=== PATIENT | male | born 2000 | race Hispanic/Latino ===

== ENCOUNTER 2019-09-28 | Emergency (ER) | payer OTHER ==
[2019-09-28] MEDS ORDERED: AMOXICILLIN500 MG PO (02:28)
== END 2019-09-28 02:45 | disposition home or self-care (01) | DRG 156 ==
PROC: 09C37ZZ Extirpation of Matter from Right External Auditory Canal, Via Natural or Artificial Opening (ICD-10-PCS; principal; 2019-09-28)
DX: T16.1XXA Foreign body in right ear, initial encounter (principal); X58.XXXA Exposure to other specified factors, initial encounter

== ENCOUNTER 2019-10-10 | Emergency (ER) | payer OTHER ==
[~2019-10-10] MED LIST: AMOXICILLIN500 MG PO
[2019-10-10] MEDS ORDERED: BACTRIM DS1 TAB PO (11:55)
== END 2019-10-10 13:02 | disposition home or self-care (01) | DRG 983 ==
PROC: 0XQ5XZZ Repair Left Axilla, External Approach (ICD-10-PCS; principal; 2019-10-10)
DX: S41.112A Laceration without foreign body of left upper arm, initial encounter (principal); W17.89XA Other fall from one level to another, initial encounter; Y92.74 Orchard as the place of occurrence of the external cause; Y99.0 Civilian activity done for income or pay